=== PATIENT | female | born 1980 | race Two or more races ===

== ENCOUNTER 2019-04-24 23:23 | Emergency (ER) | payer OTHER ==
[~2019-04-24] VITALS: Ht 162.6 cm; Wt 73.0 kg
[2019-04-24] MEDS ORDERED: ALBU0.63 NEB (23:46)
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
--- NOTE | 2019-04-25 00:05 | NUR ---
pt to [place]
--- NOTE | 2019-04-25 00:38 | NUR ---
pt resting on gurney with eyes closed, nadn, equal chest rise/fall observed, monitors in place, siderails up x2, call light within reach
[2019-04-25] MEDS ORDERED: NEOSPORIN OINT. PKT 1 PACKET ONE (01:08)
[2019-04-25 01:28] VITALS: BP 107/55
--- NOTE | 2019-04-25 01:31 | NUR ---
LEFT LOWER LEG WOUND CLEANED, BACITRACIN AND DRESSING BANDAID APPLIED.
--- NOTE | 2019-04-25 01:47 | NUR ---
provided pt with d/c instructions, after several attempts to encourage pt to get dressed for d/c pt continues to refuse getting dressed and turns over and closes her eyes.
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
== END 2019-04-25 01:58 | disposition home or self-care (01) ==
LOC: ED 04-25 01:52
DX: S06.9X9A Unspecified intracranial injury with loss of consciousness of unspecified duration, initial encounter (principal); S05.12XA Contusion of eyeball and orbital tissues, left eye, initial encounter; S20.229A Contusion of unspecified back wall of thorax, initial encounter; S80.812A Abrasion, left lower leg, initial encounter; F10.120 Alcohol abuse with intoxication, uncomplicated; F17.210 Nicotine dependence, cigarettes, uncomplicated; Y04.8XXA Assault by other bodily force, initial encounter; Y93.89 Activity, other specified; Y92.89 Other specified places as the place of occurrence of the external cause; Y99.8 Other external cause status; Y90.9 Presence of alcohol in blood, level not specified
CPT/HCPCS: 70450; 70486; 72072; 99284